=== PATIENT | female | born 2005 | race Caucasian/White ===

== ENCOUNTER 2024-02-03 20:47 | Emergency (ER) | payer OTHER ==
[~2024-02-03 20:47] MED LIST: Iopamidol-370 76% 500 ML MDV (1 ML CHARGE) ONE
[2024-02-03] MEDS ORDERED: Bacitracin 1 PK ONE (21:47)
[2024-02-03] MEDS ORDERED: CEFAZOLIN 2 GM VIAL ONE (21:48)
[2024-02-03] MEDS ORDERED: Lidocaine 1% PF 5 ML VIAL ONE (21:48)
[2024-02-03] MEDS ORDERED: Morphine 4 MG/ML VIAL ONE (21:48)
[2024-02-03] MEDS ORDERED: Ondansetron PF 4 MG/2 ML Vial ONE (21:48)
[2024-02-03] MEDS ORDERED: Boostrix 0.5 ML (Tdap) VIAL (>/=7 yrs of age) ONE (21:49)
[2024-02-03 22:01] LABS: #Basophils 0.05 10x3/uL (0.0-0.2); %Basophils 0.4 % (0.0-1.0); %Eosinophils 0.7 % (0.0-10.0); %Lymphocytes 13.4 % (28.0-48.0); %Monocytes 6.4 % (0.0-4.0); %Neutrophils 78.7 % (31.0-61.0); Hematocrit 39.5 % (36.0-47.0); Hemoglobin 13.4 g/dL (12.0-16.0); Mean Corpuscular HGB CONC 33.9 g/dL (32.0-36.0); Mean Corpuscular Volume 88.4 fL (78.0-98.0); Mean Platelet Volume 9.7 fL (7.4-10.4); Platelet Count 231 10x3/uL (130-400); RBC Distribution Width 12.6 % (11.5-14.5); Red Blood Cell (RBC) Count 4.47 mill/uL (4.00-5.20)
[2024-02-03 22:05] LABS: BHCG - Serum Negative (NEGATIVE); Pregs Control Background? CLEAR/WHITE (CLR/WHITE); Pregs Control Bar Appear? YES (CONTROL BAR)
[2024-02-03 22:13] LABS: ALT (SGPT) 34 U/L (8-55); AST (SGOT) 39 U/L (5-30); Albumin 3.8 g/dL (3.5-5.0); Alkaline Phosphatase 46 U/L (40-100); Anion Gap 15 mmol/L (10-20); BUN (Urea Nitrogen) 11 mg/dL (8.4-21.0); Bilirubin, Total 0.4 mg/dL (0.2-1.2); Calc. Creatinine Clearance 0 mL/min (70-130); Calcium 8.8 mg/dL (7.8-10.44); Carbon Dioxide 22 mmol/L (22-29); Chloride 100 mmol/L (98-107); Estimated GFR 123; Globulin 2.7 g/dL (2.4-3.5); Glucose 93 mg/dL (70-105); Potassium 3.4 mmol/L (3.5-5.1); Protein, Total 6.5 g/dL (6.0-8.3); Sodium 134 mmol/L (136-145)
[2024-02-04] MEDS ORDERED: Lidocaine 1% w/Epinephrine 1:100K 20 ML VIAL ONE (00:12)
[2024-02-04] MEDS ORDERED: Acetaminophen 500 MG TAB ONE (00:30)
== END 2024-02-04 00:21 | disposition home or self-care (01) ==
LOC: ERS 20:47
DX: S06.0X9A Concussion with loss of consciousness of unspecified duration, initial encounter (principal); S01.81XA Laceration without foreign body of other part of head, initial encounter; S60.512A Abrasion of left hand, initial encounter; S60.511A Abrasion of right hand, initial encounter; S80.212A Abrasion, left knee, initial encounter; S80.211A Abrasion, right knee, initial encounter; S40.811A Abrasion of right upper arm, initial encounter; G40.909 Epilepsy, unspecified, not intractable, without status epilepticus; V28.09XA Other motorcycle driver injured in noncollision transport accident in nontraffic accident, initial encounter; Y93.55 Activity, bike riding; Y92.219 Unspecified school as the place of occurrence of the external cause; Z55.6 Problems related to health literacy; Z23 Encounter for immunization
CPT/HCPCS: 12013; 36415; 70450; 70486; 71045; 71260; 72125; 74177; 80053; 83690; 84484; 84703; 85025; 90471; 90715; 93005; 96374; 96375; J2272; J2405; Q9967